=== PATIENT | male | born 1940 | race Caucasian/White ===

== ENCOUNTER 2017-03-21 18:12 | Emergency (ER) | payer MEDICARE, OTHER ==
[~2017-03-21] VITALS: Ht 182.9 cm; Wt 117.9 kg
[~2017-03-21 18:12] MED LIST: /INSULEV SC; ALTA10CA OR; ALTACE PO; ASPI81TA83 PO; CORE25TA PO; GLUC500T OR; LASI20TA PO; METFORMIN PO; MULTIVIT PO; NOVOLOG100 MG/ML SC; PLAV75TA2 OR; PRAV40TA OR
[2017-03-21] MEDS ORDERED: LUPR45IN IM (18:26)
[2017-03-21] MEDS ORDERED: LABETALOL HCL 100 MG/20 ML VIAL IV STA (18:56)
[2017-03-21] MEDS ORDERED: NS 1,000 ML IV SCH (19:00)
[2017-03-21 19:13] LABS: MICROSCOPIC INDICATED? MAN YES (NO)
[2017-03-21 19:21] LABS: BASO % 0.4 % (0.0-1.0); EOS # 0.1 K/mm3 (0.0-0.50); EOS % 0.8 % (0.0-3.0); LARGE UNSTAINED CELL # 0.1 K/mm3 (0.0-0.4); LARGE UNSTAINED CELL % 1.3 % (0.0-4.0); LYMPH # 1.6 K/mm3 (1.5-4.5); LYMPH % 17.3 % (24.0-44.0); MEAN CORPUSCULAR HEMOGLOBIN 29.6 pg (27.0-33.0); MEAN CORPUSCULAR HGB CONC 33.3 g/dl (32.0-36.5); MONO # 0.6 K/mm3 (0.0-0.8); MONO % 6.8 % (0.0-5.0); NEUTROPHILS # 6.7 K/mm3 (1.8-7.7); NEUTROPHILS % 73.4 % (36.0-66.0); PLATELET COUNT, AUTOMATED 166 k/mm3 (150-450); RED CELL DISTRIBUTION WIDTH 13.5 % (11.5-14.5); WHITE BLOOD COUNT 9.1 K/mm3 (4.0-10.0)
[2017-03-21 19:24] LABS: BACTERIA, URINE SMALL AMOUNT; HYALINE CAST, URINE NONE SEEN /lpf (0-1); RBC, URINE TNTC /hpf (0-3); SQUAMOUS EPITHELIAL CELL URINE LARGE AMOUNT /hpf (SMALL AMT)
[2017-03-21 19:25] LABS: MICROSCOPIC EXAM PERFORMED
[2017-03-21 19:47] LABS: INR 1.05
[2017-03-21 19:52] LABS: ALBUMIN 3.7 GM/DL (3.2-5.2); ALBUMIN/GLOBULIN RATIO 0.95 (1.00-1.93); ALKALINE PHOSPHATASE 101 U/L (45-117); ALT/SGPT 29 U/L (12-78); ANION GAP 10 MEQ/L (8-16); AST/SGOT 31 U/L (15-37); BILIRUBIN,TOTAL 0.9 MG/DL (0.2-1.0); BLOOD UREA NITROGEN 14 MG/DL (7-18); CALCIUM LEVEL 9.1 MG/DL (8.8-10.2); CARBON DIOXIDE LEVEL 25 MEQ/L (21-32); CHLORIDE LEVEL 104 MEQ/L (98-107); CREATININE FOR GFR 1.05 MG/DL (0.70-1.30); GLOMERULAR FILTRATION RATE > 60.0 (>42); GLUCOSE, FASTING 297 MG/DL (83-110); MAGNESIUM LEVEL 1.8 MG/DL (1.8-2.4); POTASSIUM SERUM 4.3 MEQ/L (3.5-5.1); SODIUM LEVEL 139 MEQ/L (136-145); TOTAL PROTEIN 7.6 GM/DL (6.4-8.2)
[2017-03-21] MEDS ORDERED: ONDANSETRON 4MG/2ML VIAL (J2405) IV PRN (20:15)
--- NOTE | 2017-03-21 20:50 | REPUSA ---
Clinical history: hematuria. Findings: The urinary bladder appears unremarkable, measuring 9.2 x 7.1 x 5.7 cm. No urinary bladder masses are seen. The right kidney measures 13.1 x 6.3 x 6.6 cm. The left kidney measures 12.4 x 6.5 x 6.3 cm. The kidneys demonstrate normal echotexture and echogenicity. There is no evidence of hydro nephrosis or nephrolithiasis. No renal masses are seen. No free fluid is appreciated. Impression: Unremarkable ultrasound examination of the kidneys.
[2017-03-21] MEDS ORDERED: cefTRIAXone SOD 2 GM in D5W MINI-BAG PLUS 50 ML IV ONE (21:00)
[2017-03-21] MEDS ORDERED: CEFD1CAP8 PO (21:40)
[2017-03-21] MEDS ORDERED: SENN8.6T7 PO (21:40)
[2017-03-21 21:45] VITALS: BP 161/75
[2017-03-21] MEDS ORDERED: SENOKOT S TAB PO ONE (21:45)
--- NOTE | 2017-03-22 11:54 | ECGEPIP ---
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
== END 2017-03-21 22:10 | disposition home or self-care (01) ==
LOC: M ED 19:19
DX: R39.15 Urgency of urination (principal); N41.9 Inflammatory disease of prostate, unspecified; R31.9 Hematuria, unspecified; E11.9 Type 2 diabetes mellitus without complications; I25.10 Atherosclerotic heart disease of native coronary artery without angina pectoris; I10 Essential (primary) hypertension; Z98.61 Coronary angioplasty status; Z96.651 Presence of right artificial knee joint; Z79.4 Long term (current) use of insulin; Z79.82 Long term (current) use of aspirin; Z79.899 Other long term (current) drug therapy; Z88.5 Allergy status to narcotic agent
CPT/HCPCS: 76775; 80053; 81000; 82550; 82553; 83735; 84484; 85025; 85610; 86850; 86900; 86901; 87086; 93005; 96374; 96375; 99284; J0696; J2405

== ENCOUNTER 2017-04-13 11:03 | Emergency (ER) | payer MEDICARE, OTHER ==
[~2017-04-13] VITALS: Ht 182.9 cm; Wt 118.2 kg
[~2017-04-13 11:03] MED LIST changes: +CEFD1CAP8 PO; +LUPR45IN IM; +SENN8.6T7 PO
[2017-04-13 11:58] LABS: BASO % 0.6 % (0.0-1.0); EOS # 0.1 K/mm3 (0.0-0.50); EOS % 1.9 % (0.0-3.0); LARGE UNSTAINED CELL # 0.1 K/mm3 (0.0-0.4); LARGE UNSTAINED CELL % 1.1 % (0.0-4.0); LYMPH # 1.6 K/mm3 (1.5-4.5); LYMPH % 20.9 % (24.0-44.0); MEAN CORPUSCULAR HEMOGLOBIN 29.6 pg (27.0-33.0); MEAN CORPUSCULAR HGB CONC 33.4 g/dl (32.0-36.5); MEAN CORPUSCULAR VOLUME 88.5 fl (80.0-96.0); MONO # 0.5 K/mm3 (0.0-0.8); MONO % 7.2 % (0.0-5.0); NEUTROPHILS # 4.9 K/mm3 (1.8-7.7); NEUTROPHILS % 68.3 % (36.0-66.0); PLATELET COUNT, AUTOMATED 137 k/mm3 (150-450); RED CELL DISTRIBUTION WIDTH 13.7 % (11.5-14.5); WHITE BLOOD COUNT 7.2 K/mm3 (4.0-10.0)
[2017-04-13 12:26] LABS: ALBUMIN 3.1 GM/DL (3.2-5.2); ALBUMIN/GLOBULIN RATIO 0.79 (1.00-1.93); ALKALINE PHOSPHATASE 82 U/L (45-117); ALT/SGPT 19 U/L (12-78); ANION GAP 6 MEQ/L (8-16); AST/SGOT 20 U/L (15-37); BILIRUBIN,DIRECT 0.1 MG/DL (0.0-0.2); BILIRUBIN,TOTAL 0.6 MG/DL (0.2-1.0); BLOOD UREA NITROGEN 14 MG/DL (7-18); CARBON DIOXIDE LEVEL 28 MEQ/L (21-32); CHLORIDE LEVEL 105 MEQ/L (98-107); CREATININE FOR GFR 0.89 MG/DL (0.70-1.30); GLOMERULAR FILTRATION RATE > 60.0 (>42); GLUCOSE, FASTING 257 MG/DL (83-110); POTASSIUM SERUM 4.9 MEQ/L (3.5-5.1); SODIUM LEVEL 139 MEQ/L (136-145)
--- NOTE | 2017-04-13 12:51 | REP ---
Clinical: Left leg weakness . Findings: Age-related atrophy and microvascular ischemic changes are appreciated. The ventricles and sulci are symmetric. Steve-white differentiation is maintained. There is no evidence for acute intracranial hemorrhage, mass/mass effect, pathology or infarction. No extra-axial fluid collection. Calvarium is intact. Paranasal sinuses and mastoid air cells are clear. Impression: Age related atrophy and microvascular ischemic changes. No acute intracranial hemorrhage, infarction, or mass/mass effect. Signed by Mahendra Swartz MD 04/13/2017 12:43 P
--- NOTE | 2017-04-13 14:24 | REP ---
Clinical: Left lower extremity weakness. Technique: Standard noncontrast MRI of the brain sequencing. Findings: The ventricles, sulci, and cisterns are symmetric and demonstrate atrophic change. High signal intensity foci on T2 and FLAIR weighted sequences along with mild periventricular high signal intensity is compatible with age-related microvascular ischemic changes. There is no evidence for acute intracranial hemorrhage, infarction, mass or mass effect. No extra-axial collection identified. Diffusion and ADC mapping sequences are normal and without acute infarction. Midbrain and midline structures are intact. Impression: Age-related atrophy and microvascular ischemic changes. No acute intracranial pathology appreciated. Signed by Mahendra Swartz MD 04/13/2017 02:15 P
--- NOTE | 2017-04-13 14:27 | REP ---
Clinical: Left lower extremity weakness. Technique: 3-D [id number] noncontrast axial source imaging with multiplanar MIP re-formations. Findings: Vertebrobasilar system demonstrates right vertebral artery dominance. Moderate atherosclerotic changes to the clinoid portion of internal carotid arteries. [place] is intact. Vasculature to the bilateral hemispheres appears symmetric and relatively normal. No arteriovenous malformation or aneurysm identified. Impression: Atherosclerotic changes of the internal carotid arteries. Signed by Mahendra Swartz MD 04/13/2017 02:18 P
--- NOTE | 2017-04-13 14:52 | REP ---
Clinical: Pain and swelling . Technique: Steve scale and color Doppler evaluation using linear high frequency transducer. Findings: Ultrasound examination of the left lower extremity deep venous structures from the common femoral vein to the popliteal vein demonstrates normal compressibility flow and wave patterns in response to respiration and augmentation. There is no evidence for deep venous thrombosis. Impression: No evidence for deep venous thrombosis. Signed by Mahendra Swartz MD 04/13/2017 02:44 P
[2017-04-13 15:40] VITALS: BP 138/78
--- NOTE | 2017-04-13 18:13 | ECGEPIP ---
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
--- NOTE | 2017-04-17 13:29 | REPUSA ---
MRI of the lumbar spine without contrast Clinical statement: Pain. Technique: Multiecho multiplanar MRI images of the lumbar spine were obtained without administration of contrast. No comparison is available. Findings: The lumbar vertebral bodies are in satisfactory position and alignment. No fractures or dis locations are demonstrated. Heterogeneous bone marrow signal is noted throughout the osseous structur es. There is a T1 and T2 hypointense lesion in the anterior L1 vertebral body.. No corresponding les ion was seen in this region on the prior CT of [facility] 04/02/2016. There is no evidence of significant [place] marrow edema this site. The intervertebral disc heights are severely narrowed at all levels, with loss of signal at all levels also appreciated. The filum terminale and conus medullaris appear unrem arkable. The spinal cord demonstrates normal signal and contour. The surrounding soft tissues are wit hin normal limits. At L1/L2, there is a broad disc osteophyte complex and disc bulge.There is no evidence of disc hernia tion or central canal stenosis. There is moderately severe bilateral neural foraminal narrowing. At L2/L3, there is a broad disc osteophyte complex and disc bulge. There is no evidence of disc herni ation or central canal stenosis. There is moderately severe bilateral neural foraminal narrowing. At L3/L4, there is a broad disc bulge noted with central disc protrusion measuring 0.5 x 1.4 cm. Hyp erintensity in the disc protrusion is noted posteriorly. There is no evidence of central canal stenos is. There is moderately severe bilateral neural foraminal narrowing. At L4/L5, there is a broad disc osteophyte complex and disc bulge. There is no evidence of disc herni ation or central canal stenosis. There is moderately severe bilateral neural foraminal narrowing. At L5/S1, there is a broad disc bulge with left paracentral disc protrusion, measuring 0.6 x 1.7 cm. There is moderately severe bilateral neural foraminal narrowing. Impression: 1. Severe multilevel degenerative disc disease throughout the lumbar spine as described. This results in moderately severe bilateral neural foraminal narrowing at all levels. 2. At L5/S1, left paracentral disc protrusion with disc bulge. 3. At L3/L4, central disc protrusion with annular tear. No evidence of central canal stenosis. 4. In the anterior L1 vertebral body, there is a hypointense lesion noted as described. This is no t a benign hemangioma. Metastatic lesion cannot completely be excluded, although no corresponding les ion was seen on the prior CT of 2016. CT or MRI with and without contrast would be helpful for furthe r evaluation.
--- NOTE | 2017-04-18 16:04 | ED PDOC ---
Post-Departure Follow-Up dr gan faxed formal report of mri ls spine for fu Ana Lynn MD Apr 18, 2017 16:04
== END 2017-04-13 15:59 | disposition home or self-care (01) ==
LOC: M ED 11:03
DX: M48.06 Spinal stenosis, lumbar region (principal); M51.26 Other intervertebral disc displacement, lumbar region; E11.9 Type 2 diabetes mellitus without complications; G43.909 Migraine, unspecified, not intractable, without status migrainosus; Z85.46 Personal history of malignant neoplasm of prostate; M79.605 Pain in left leg; Z85.820 Personal history of malignant melanoma of skin; Z79.82 Long term (current) use of aspirin; Z79.4 Long term (current) use of insulin; Z79.84 Long term (current) use of oral hypoglycemic drugs; Z79.899 Other long term (current) drug therapy

== ENCOUNTER 2017-05-06 23:59 | Emergency (ER) | payer MEDICARE, OTHER ==
[~2017-05-06] VITALS: Ht 182.9 cm; Wt 117.3 kg
[2017-05-07 00:16] VITALS: BP 135/79
[2017-05-07] MEDS ORDERED: OXYC1TAB23 PO (00:23)
== END 2017-05-07 02:21 | disposition left against medical advice (07) ==
LOC: M ED 23:59
DX: M54.9 Dorsalgia, unspecified (principal); M25.549 Pain in joints of unspecified hand; Z53.21 Procedure and treatment not carried out due to patient leaving prior to being seen by health care provider

== ENCOUNTER 2017-07-05 15:17 | Emergency (ER) | payer MEDICARE, OTHER ==
[~2017-07-05] VITALS: Ht 182.9 cm; Wt 119.1 kg
[~2017-07-05 15:17] MED LIST changes: +OXYC1TAB23 PO
[2017-07-05 16:50] LABS: BASO % 0.4 % (0.0-1.0); EOS # 0.1 K/mm3 (0.0-0.50); EOS % 1.3 % (0.0-3.0); LARGE UNSTAINED CELL # 0.2 K/mm3 (0.0-0.4); LARGE UNSTAINED CELL % 2.1 % (0.0-4.0); LYMPH # 1.2 K/mm3 (1.5-4.5); LYMPH % 16.1 % (24.0-44.0); MEAN CORPUSCULAR HEMOGLOBIN 30.8 pg (27.0-33.0); MEAN CORPUSCULAR HGB CONC 35.1 g/dl (32.0-36.5); MEAN CORPUSCULAR VOLUME 87.7 fl (80.0-96.0); MONO # 0.5 K/mm3 (0.0-0.8); NEUTROPHILS # 5.2 K/mm3 (1.8-7.7); NEUTROPHILS % 73.2 % (36.0-66.0); PLATELET COUNT, AUTOMATED 142 k/mm3 (150-450); RED CELL DISTRIBUTION WIDTH 13.2 % (11.5-14.5); WHITE BLOOD COUNT 7.2 K/mm3 (4.0-10.0)
[2017-07-05 16:56] LABS: INR 0.91
[2017-07-05 17:12] LABS: ALBUMIN 3.2 GM/DL (3.2-5.2); ALBUMIN/GLOBULIN RATIO 0.86 (1.00-1.93); ALKALINE PHOSPHATASE 79 U/L (45-117); ALT/SGPT 20 U/L (12-78); ANION GAP 10 MEQ/L (8-16); AST/SGOT 14 U/L (15-37); BILIRUBIN,DIRECT 0.1 MG/DL (0.0-0.2); BILIRUBIN,TOTAL 0.5 MG/DL (0.2-1.0); BLOOD UREA NITROGEN 14 MG/DL (7-18); CALCIUM LEVEL 9.2 MG/DL (8.8-10.2); CARBON DIOXIDE LEVEL 26 MEQ/L (21-32); CHLORIDE LEVEL 106 MEQ/L (98-107); CREATININE FOR GFR 0.79 MG/DL (0.70-1.30); GLOMERULAR FILTRATION RATE > 60.0 (>42); GLUCOSE, FASTING 252 MG/DL (83-110); POTASSIUM SERUM 4.4 MEQ/L (3.5-5.1); SODIUM LEVEL 142 MEQ/L (136-145); TOTAL PROTEIN 6.9 GM/DL (6.4-8.2)
--- NOTE | 2017-07-05 17:20 | REP ---
PORTABLE CHEST: AP portable view of the chest is performed and compared to prior study of 06/20/2016. Mild bibasilar fibroatelectatic change is stable with no acute infiltrate. There is mild elevation of the left hemidiaphragm. Mediastinal silhouette is unchanged. There does not appear to be significant cardiomegaly. IMPRESSION: Stable chronic findings without acute infiltrate. Signed by Leland Steve MD 07/05/2017 07:25 P
--- NOTE | 2017-07-05 17:52 | REP ---
CT BRAIN WITHOUT IV CONTRAST: CT brain is performed without IV contrast. There is moderate atrophy. There is no midline shift. There is no acute intracranial hemorrhage or extra-axial fluid collection. There are mild periventricular small vessel ischemic changes in the white matter which appear stable compared to prior study of 04/13/2017. Vascular calcifications are seen in the carotid siphons. IMPRESSION: Atrophy and chronic periventricular small vessel ischemic changes appear stable, without evidence of acute intracranial hemorrhage or other acute finding. Signed by Leland Steve MD 07/05/2017 07:26 P
[2017-07-05] MEDS ORDERED: METOCLOPRAMIDE INJ 10MG/2ML VIAL (J2765) As Ordered ONE (17:55)
[2017-07-05] MEDS ORDERED: METOCLOPRAMIDE INJ 10MG/2ML VIAL (J2765) IV ONE (18:00)
[2017-07-05] MEDS ORDERED: ALTEPLASE RECOMBINANT 81 MG in APPROPRIATE DILUENT 1 EA IV ONE (18:30)
[2017-07-05] MEDS ORDERED: ALTEPLASE 100MG INJ (J2997) IV ONE (18:30)
[2017-07-05] MEDS ORDERED: MORPHINE 4 MG/ML 1ML SYRINGE IV ONE (18:30)
[2017-07-05 18:31] VITALS: BP 158/97
--- NOTE | 2017-07-07 05:46 | ECGEPIP ---
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
== END 2017-07-05 19:43 | disposition short-term general hospital (02) ==
LOC: M ED 15:17
DX: I63.50 Cerebral infarction due to unspecified occlusion or stenosis of unspecified cerebral artery (principal); C61 Malignant neoplasm of prostate; I48.91 Unspecified atrial fibrillation; E11.9 Type 2 diabetes mellitus without complications; I10 Essential (primary) hypertension; Z95.1 Presence of aortocoronary bypass graft; Z82.49 Family history of ischemic heart disease and other diseases of the circulatory system; Z79.82 Long term (current) use of aspirin; Z79.4 Long term (current) use of insulin; Z79.899 Other long term (current) drug therapy; Z88.5 Allergy status to narcotic agent; Z91.040 Latex allergy status
CPT/HCPCS: 70450; 71010; 80048; 80076; 82550; 82553; 84443; 84484; 85025; 85610; 85730; 86850; 86900; 86901; 93005; 93041; 94760; 96374; 96375; 99291; J2765

== ENCOUNTER 2018-06-02 17:25 | Emergency (ER) | payer MEDICARE, OTHER ==
[2018-06-02 19:00] LABS: BASO % 0.5 % (0.0-1.0); EOS # 0.1 10^3/uL (0.0-0.50); EOS % 2.2 % (0.0-3.0); HEMATOCRIT 36.7 % (42.0-52.0); HEMOGLOBIN 12.2 g/dl (13.5-17.5); IMMATURE GRANULOCYTE % 0.5 % (0-3.0); LYMPH # 1.3 10^3/uL (1.5-4.5); LYMPH % 22.5 % (24.0-44.0); MEAN CORPUSCULAR HEMOGLOBIN 30.6 pg (27.0-33.0); MEAN CORPUSCULAR HGB CONC 33.2 g/dl (32.0-36.5); MONO # 0.6 10^3/uL (0.0-0.8); MONO % 10.6 % (0.0-5.0); NEUTROPHILS # 3.7 10^3/uL (1.8-7.7); NEUTROPHILS % 63.7 % (36.0-66.0); PLATELET COUNT, AUTOMATED 120 10^3/uL (150-450); RED BLOOD COUNT 3.99 10^6/uL (4.30-6.10); RED CELL DISTRIBUTION WIDTH 13.2 % (11.5-14.5); WHITE BLOOD COUNT 5.9 10^3/uL (4.0-10.0)
[2018-06-02 19:03] LABS: KETONE, URINE AUTO RFX TRACE mg/dL (NEGATIVE); LEUKOCYTE ESTERASE UR AUTO RFX NEGATIVE (NEGATIVE); NITRITE, URINE AUTO RFX NEGATIVE (NEGATIVE); RBC, URINE AUTO RFX 3 /HPF (0-3); SPECIFIC GRAVITY UR AUTO RFX 1.027 (1.002-1.035); SQUAM EPITHELIAL CELL UR AURFX 0 /HPF (0-6); WBC, URINE AUTO RFX 1 /HPF (0-3)
[2018-06-02 19:24] LABS: ALBUMIN 3.1 GM/DL (3.2-5.2); ALBUMIN/GLOBULIN RATIO 0.94 (1.00-1.93); ALKALINE PHOSPHATASE 37 U/L (45-117); ALT/SGPT 20 U/L (12-78); ANION GAP 7 MEQ/L (8-16); AST/SGOT 14 U/L (7-37); BILIRUBIN,DIRECT 0.1 MG/DL (0.0-0.2); BILIRUBIN,TOTAL 0.5 MG/DL (0.2-1.0); BLOOD UREA NITROGEN 12 MG/DL (7-18); CALCIUM LEVEL 8.6 MG/DL (8.8-10.2); CARBON DIOXIDE LEVEL 27 MEQ/L (21-32); CHLORIDE LEVEL 108 MEQ/L (98-107); CREATININE FOR GFR 0.78 MG/DL (0.70-1.30); GLOMERULAR FILTRATION RATE > 60.0 (>42); GLUCOSE, FASTING 276 MG/DL (70-100); LIPASE 100 U/L (73-393); POTASSIUM SERUM 4.3 MEQ/L (3.5-5.1); SODIUM LEVEL 142 MEQ/L (136-145); TOTAL PROTEIN 6.4 GM/DL (6.4-8.2)
[2018-06-02] MEDS: diazePAM 5 MG TAB PO (20:23)
[2018-06-02] MEDS: ONDANSETRON 4MG/2ML VIAL (J2405) IV (20:23)
[2018-06-02] MEDS: KETOROLAC 30 MG/ML VIAL (J1885) IV (20:25)
== END 2018-06-02 21:25 | disposition home or self-care (01) ==
LOC: M ED 17:25
DX: M54.9 Dorsalgia, unspecified (principal); D44.11 Neoplasm of uncertain behavior of right adrenal gland; N20.0 Calculus of kidney; I11.0 Hypertensive heart disease with heart failure; E11.9 Type 2 diabetes mellitus without complications; E78.5 Hyperlipidemia, unspecified; Z79.82 Long term (current) use of aspirin; Z79.899 Other long term (current) drug therapy; Z79.4 Long term (current) use of insulin
CPT/HCPCS: J2405

== ENCOUNTER 2018-06-14 20:13 | Emergency (ER) | payer MEDICARE, OTHER ==
[2018-06-14 20:46] LABS: BEDSIDE GLUCOSE 262 MG/DL (83-110)
[2018-06-14 21:21] LABS: BASO % 0.5 % (0.0-1.0); EOS # 0.1 10^3/uL (0.0-0.50); EOS % 1.6 % (0.0-3.0); HEMATOCRIT 40.6 % (42.0-52.0); HEMOGLOBIN 13.8 g/dl (13.5-17.5); IMMATURE GRANULOCYTE % 0.4 % (0-3.0); LYMPH # 1.6 10^3/uL (1.5-4.5); LYMPH % 20.5 % (24.0-44.0); MEAN CORPUSCULAR HEMOGLOBIN 30.7 pg (27.0-33.0); MEAN CORPUSCULAR VOLUME 90.4 fl (80.0-96.0); MONO # 0.9 10^3/uL (0.0-0.8); MONO % 11.2 % (0.0-5.0); NEUTROPHILS # 5.2 10^3/uL (1.8-7.7); NEUTROPHILS % 65.8 % (36.0-66.0); PLATELET COUNT, AUTOMATED 152 10^3/uL (150-450); RED BLOOD COUNT 4.49 10^6/uL (4.30-6.10); RED CELL DISTRIBUTION WIDTH 12.8 % (11.5-14.5)
[2018-06-14 21:30] LABS: INR 0.95; PARTIAL THROMBOPLASTIN TIME 24.4 SECONDS (25.4-37.6); PROTHROMBIN TIME 12.8 SECONDS (12.1-14.4)
[2018-06-14 21:55] LABS: ANION GAP 10 MEQ/L (8-16); BLOOD UREA NITROGEN 12 MG/DL (7-18); CALCIUM LEVEL 8.5 MG/DL (8.8-10.2); CARBON DIOXIDE LEVEL 27 MEQ/L (21-32); CHLORIDE LEVEL 104 MEQ/L (98-107); CK-MB VALUE MASS 1.3 NG/ML (<3.6); CPK CREATINE PHOSPHOKINASE 62 U/L (39-308); CREATININE FOR GFR 1.02 MG/DL (0.70-1.30); GLOMERULAR FILTRATION RATE > 60.0 (>42); GLUCOSE, FASTING 248 MG/DL (70-100); MB/CK RELATIVE INDEX 2.09 (< OR =4); POTASSIUM SERUM 3.7 MEQ/L (3.5-5.1); SODIUM LEVEL 141 MEQ/L (136-145); TROPONIN I < 0.02 NG/ML (< 0.10)
[2018-06-15] MEDS: MAALOX 30 ML SUSP *UDC PO (00:15)
== END 2018-06-15 00:18 | disposition home or self-care (01) ==
LOC: M ED 06-15 00:18
DX: G43.909 Migraine, unspecified, not intractable, without status migrainosus (principal); R94.31 Abnormal electrocardiogram [ECG] [EKG]; Z86.73 Personal history of transient ischemic attack (TIA), and cerebral infarction without residual deficits; Z79.82 Long term (current) use of aspirin; Z79.4 Long term (current) use of insulin; Z79.899 Other long term (current) drug therapy; Z88.5 Allergy status to narcotic agent; Z91.040 Latex allergy status
CPT/HCPCS: 71045

== ENCOUNTER → 2019-04-13 | Outpatient (CLI) | payer MEDICARE, OTHER ==
[~2019-04-13] MED LIST changes: -/INSULEV SC; +CALCTAB89 PO; +D32000CA PO; +DONE5TAB64; +FLOM0.4C39 PO; +FURO40TA2 PO; +IBUP-1022 PO; +INSUDET SC; +LEVE0.01 SC; +LIPI20TA PO; +METF500T4 PO; +METO1TAB7 PO; +NOVOINJ3 SC; +POLY1POW38 PO; +RAMI1CAP24 PO; +SENN1TAB41 PO; -SENN8.6T7 PO; +SOMA350T PO; +VOLT1GEL15 TD; +XTAN40CA PO
== END ==
LOC: M PT 12:26
PROVIDERS: ATTEND Psychiatry & Neurology Neurology
DX: M54.5 Low back pain (principal)

== ENCOUNTER 2019-05-18 12:38 | Emergency (ER) | payer MEDICARE, OTHER ==
[~2019-05-18] VITALS: Ht 182.9 cm; Wt 115.5 kg
[2019-05-18] MEDS ORDERED: KEFL500C17 PO (14:48)
[2019-05-18 15:01] VITALS: BP 176/73
== END 2019-05-18 15:14 | disposition home or self-care (01) ==
LOC: M ED 12:38
DX: S81.802A Unspecified open wound, left lower leg, initial encounter (principal); X58.XXXA Exposure to other specified factors, initial encounter; Y92.9 Unspecified place or not applicable; Y93.9 Activity, unspecified; Y99.9 Unspecified external cause status; Z86.73 Personal history of transient ischemic attack (TIA), and cerebral infarction without residual deficits; E11.9 Type 2 diabetes mellitus without complications; I10 Essential (primary) hypertension; Z85.46 Personal history of malignant neoplasm of prostate; Z79.82 Long term (current) use of aspirin; Z79.4 Long term (current) use of insulin; Z79.899 Other long term (current) drug therapy; Z88.5 Allergy status to narcotic agent; Z91.040 Latex allergy status